=== PATIENT | male | born 1965 | race Caucasian/White ===

== ENCOUNTER 2018-03-13 06:41 | Emergency (ER) | payer SELFPAY ==
[~2018-03-13] VITALS: Ht 172.7 cm; Wt 81.6 kg
[2018-03-13] MEDS ORDERED: SODIUM CHLORIDE 0.9% 1,000 ML IV ONE (06:58)
[2018-03-13] MEDS ORDERED: FAMOTIDINE 20MG/2ML VIAL IV STA (06:58)
[2018-03-13] MEDS ORDERED: PANTOPRAZOLE SODIUM 40 MG/VIAL IV STA (06:58)
[2018-03-13] MEDS ORDERED: ONDANSETRON HCL 4MG/2ML VIAL IV STA (06:58)
[2018-03-13 07:18] LABS: EOSINOPHILS % 3.6 % (0.0-5.0); HEMATOCRIT. 38.4 % (42.0-52.0); HEMOGLOBIN. 13.2 g/dL (14.0-18.0); LYMPHOCYTES % 26.6 % (20.0-50.0); MEAN CORPUSCULAR HEMOGLOBIN 29.8 pg (28.0-32.0); MEAN PLATELET VOLUME 7.1 fl (7.4-10.4); MONOCYTES % 6.9 % (2.0-8.0); NEUTROPHILS % 61.9 % (40.0-76.0); PLATELET 212 x1000/uL (130-400); RED BLOOD CELL COUNT 4.42 mill/uL (4.7-6.1); RED CELL DISTRIBUTION WIDTH 13.6 % (11.6-14.6)
[2018-03-13 07:22] LABS: CHLORIDE 105 mEq/L (98-107)
[2018-03-13 07:26] LABS: ETHANOL BLOOD < 10 mg/dL
[2018-03-13 08:09] LABS: *AMPHETAMINES SCREEN URINE NEGATIVE (NEGATIVE); *BARBITURATES SCREEN URINE NEGATIVE (NEGATIVE); *BENZODIAZEPINES SCREEN URINE NEGATIVE (NEGATIVE); *COCAINE SCREEN URINE PRESUMTIVE POSITIVE (NEGATIVE)
[2018-03-13 08:10] LABS: CANNABINOID URINE SCREEN NEGATIVE (NEGATIVE); METHADONE URINE SCREEN NEGATIVE (NEGATIVE); OPIATES URINE SCREEN NEGATIVE (NEGATIVE); PHENCYCLIDINE URINE SCREEN NEGATIVE (NEGATIVE)
[2018-03-13 10:32] VITALS: BP 131/91
== END 2018-03-13 10:43 | disposition home or self-care (01) ==
LOC: ER 06:41
DX: R10.13 Epigastric pain (principal); F14.129 Cocaine abuse with intoxication, unspecified; F10.10 Alcohol abuse, uncomplicated; F17.200 Nicotine dependence, unspecified, uncomplicated; K21.9 Gastro-esophageal reflux disease without esophagitis; Z88.0 Allergy status to penicillin; Y90.9 Presence of alcohol in blood, level not specified
CPT/HCPCS: 36415; 74021; 80053; 80305; 83690; 85025; 96374; 96375; 99285; C9113; G0482; J2405; J3490; J7030; Z7610